=== PATIENT | male | born 1935 | race Caucasian/White ===

== ENCOUNTER 2016-11-30 10:56 | Emergency (ER) | payer MEDICARE ==
[~2016-11-30] VITALS: Ht 185.4 cm; Wt 95.7 kg
[~2016-11-30 10:56] MED LIST: FINA5TAB4 PO; MELO-150 PO; METF500T4 PO; OXYC-323 PO; OXYC1TAB7 PO; PRIM50TA PO; PROP80CA3 PO; TAMS0.4C2 PO
[2016-11-30 11:52] LABS: BASO # 0.1 x10^3/uL (0.0-0.2); BASO % 1 % (0-3); EOS % 2 % (0-3); HEMATOCRIT 32.9 % (39.0-53.0); HEMOGLOBIN 10.9 g/dL (13.0-17.5); LYMPH # 1.4 x10^3/uL (1.0-4.8); LYMPH % 21 % (24-48); MEAN CORPUSCULAR HEMOGLOBIN 35 pg (25-35); MEAN CORPUSCULAR HGB CONC 33 g/dL (31-37); MEAN CORPUSCULAR VOLUME 105 fL (79-100); MONO % 11 % (0-9); NEUT % 66 % (31-73); PLATELET COUNT 149 x10^3/uL (140-400); RED BLOOD COUNT 3.13 x10^6/uL (4.30-5.70); RED CELL DISTRIBUTION WIDTH 27.6 % (11.5-14.5); WHITE BLOOD COUNT 6.9 x10^3/uL (4.0-11.0)
[2016-11-30 11:56] LABS: CALCIUM 8.5 mg/dL (8.5-10.1); CREATININE 1.2 mg/dL (0.7-1.3); GFR 58.3; POTASSIUM 4.3 mmol/L (3.5-5.1)
[2016-11-30 12:01] LABS: ALBUMIN 3.3 g/dL (3.4-5.0); DIRECT BILIRUBIN 0.2 mg/dL (0.0-0.2); TOTAL BILIRUBIN 2.5 mg/dL (0.2-1.0); TOTAL PROTEIN 5.8 g/dL (6.4-8.2)
[2016-11-30 12:08] LABS: INR 1.6 (0.8-1.1); PROTHROMBIN TIME PATIENT 17.9 SEC (11.7-14.0)
[2016-11-30 12:09] LABS: CKMB INDEX 0.8 % (0-4); CKMB MASS 0.7 ng/mL (0.0-3.6)
--- NOTE | 2016-11-30 12:17 | PHYS DOC ---
Past Medical History Past Medical History: Anemia, Arthritis, Bronchitis, Cancer, COPD, Other Additional Past Medical Histor: CATARACT, MACULAR DEGEN, TREMORS, SLEEP APNEA, GERD, CHRONIC BACK PAIN Past Surgical History: Cholecystectomy, Tonsillectomy, Other Additional Past Surgical Histo: L SHOULDER SX, Alcohol Use: Occasionally Drug Use: None Adult General Chief Complaint Chief Complaint: RECTAL BLEED [facility] HPI Patient is a 81 year old male who presents with bleeding. He states when one about 10 days states this started after hard bowel movement. States he only notices blood when he has a bowel movement and a burn somewhat. He states the blood is bright red. States a couple times he had what looks like a large quantity of blood in the toilet. He denies any fevers chills nausea vomiting. He states this morning he feels a little lightheaded but denies any shortness of breath or chest pain. Has a history of colon cancer and had it resected in July and is on his fourth round of oral chemotherapy. Review of Systems Review of Systems Constitutional: Denies fever or chills [] Eyes: Denies change in visual acuity, redness, or eye pain [] HENT: Denies nasal congestion or sore throat [] Respiratory: Denies cough or shortness of breath [] Cardiovascular: No additional information not addressed in HPI [] GI: Denies abdominal pain, nausea, vomiting or diarrhea , positive for blood in his stools [] : Denies dysuria or hematuria [] Musculoskeletal: Denies back pain or joint pain [] Integument: Denies rash or skin lesions [] Neurologic: Denies headache, focal weakness or sensory changes [] Endocrine: Denies polyuria or polydipsia [] Allergies Allergies Allergies Coded Allergies Type Severity Reaction Last Updated Verified hydrocodone Adverse Reaction Intermediate hallucination 07/27/16 Yes Physical Exam Physical Exam Constitutional: Well developed, well nourished, no acute distress, non-toxic appearance. [] HENT: Normocephalic, atraumatic, bilateral external ears normal, oropharynx moist, no oral exudates, nose normal. [] Eyes: PERRLA, EOMI, conjunctiva normal, no discharge. [] Neck: Normal range of motion, no tenderness, supple, no stridor. [] Cardiovascular:Heart rate regular rhythm, no murmur [] Lungs & Thorax: Bilateral breath sounds clear to auscultation [] Abdomen/: Bowel sounds normal, soft, no tenderness, no masses, no pulsatile masses healed incision midline. Rectal exam shows normal tone, stool in the vault without any active bleeding noted [] Skin: Warm, dry, no erythema, no rash. [] Back: No tenderness, no CVA tenderness. [] Extremities: No tenderness, no cyanosis, no clubbing, ROM intact, no edema. [] Neurologic: Alert and oriented X 3, normal motor function, normal sensory function, no focal deficits noted. [] Psychologic: Affect normal, judgement normal, mood normal. [] Current Patient Data Vital Signs Vital Signs Date Time Temp Pulse Resp B/P Pulse Ox O2 Delivery O2 Flow Rate FiO2 11/30/16 13:15 58 21 133/67 91 Room Air 11/30/16 11:05 97.4 97.4 Lab Values Laboratory Tests Test 11/30/16 11:15 11/30/16 13:30 White Blood Count 6.9x10^3/uL (4.0-11.0) Red Blood Count 3.13x10^6/uL (4.30-5.70) L Hemoglobin 10.9g/dL (13.0-17.5) L Hematocrit 32.9% (39.0-53.0) L Mean Corpuscular Volume 105fL (79-100) H Mean Corpuscular Hemoglobin 35pg (25-35) Mean Corpuscular Hemoglobin Concent 33g/dL (31-37) Red Cell Distribution Width 27.6% (11.5-14.5) H Platelet Count 149x10^3/uL (140-400) Neutrophils (%) (Auto) 66% (31-73) Lymphocytes (%) (Auto) 21% (24-48) L Monocytes (%) (Auto) 11% (0-9) H Eosinophils (%) (Auto) 2% (0-3) Basophils (%) (Auto) 1% (0-3) Neutrophils # (Auto) 4.5x10^3uL (1.8-7.7) Lymphocytes # (Auto) 1.4x10^3/uL (1.0-4.8) Monocytes # (Auto) 0.7x10^3/uL (0.0-1.1) Eosinophils # (Auto) 0.2x10^3/uL (0.0-0.7) Basophils # (Auto) 0.1x10^3/uL (0.0-0.2) Platelet Estimate Adequate (ADEQUATE) Anisocytosis Marked Prothrombin Time 17.9SEC (11.7-14.0) H Prothrombin Time INR 1.6 (0.8-1.1) H Sodium Level 141mmol/L (136-145) Potassium Level 4.3mmol/L (3.5-5.1) Chloride Level 106mmol/L (98-107) Carbon Dioxide Level 28mmol/L (21-32) Anion Gap 7 (6-14) Blood Urea Nitrogen 22mg/dL (8-26) Creatinine 1.2mg/dL (0.7-1.3) Estimated GFR (Cockcroft-Gault) 58.3 Glucose Level 134mg/dL (70-99) H Calcium Level 8.5mg/dL (8.5-10.1) Total Bilirubin 2.5mg/dL (0.2-1.0) H Direct Bilirubin 0.2mg/dL (0.0-0.2) Aspartate Amino Transferase (AST) 24U/L (15-37) Alanine Aminotransferase (ALT) 20U/L (16-63) Alkaline Phosphatase 57U/L (46-116) Creatine Kinase 85U/L (39-308) Creatine Kinase MB (Mass) 0.7ng/mL (0.0-3.6) Creatine Kinase MB Relative Index 0.8% (0-4) Troponin I Quantitative < 0.017ng/mL (0.000-0.055) UE-Adf-G-Type Natriuretic Peptide 128pg/mL (0-449) Total Protein 5.8g/dL (6.4-8.2) L Albumin 3.3g/dL (3.4-5.0) L Stool Occult Blood Positive (NEG) Laboratory Tests 11/30/16 11:15 Laboratory Tests 11/30/16 11:15 EKG EKG [] Radiology/Procedures Radiology/Procedures [] Impressions: Rectal bleeding Course & Med Decision Making Course & Med Decision Making Pertinent Labs and Imaging studies reviewed. (See chart for details) Patient's hemoglobin is 10.5 his vitals are normal. He is not lightheaded or dizzy. Rectal exam did not show any active bleeding. The patient's agreeable follow-up with Dr. Patel. Return percussions given him and his agreeable plan being discharge in stable condition this time. Dragon Disclaimer Dragon Disclaimer This electronic medical record was generated, in whole or in part, using a voice recognition dictation system. Departure Departure Impression: Primary Impression: Rectal bleeding Disposition: ADMITTED INPATIENT Condition: STABLE Referrals: ROSE BARRY MD (PCP) SARA BARBER MD Patient Instructions: Rectal Bleeding Additional Instructions: You're hemoglobin is stable and you not complaining of being lightheaded or dizzy. I do not see any signs of bleeding on my exam. Please call Dr. Patel's office and schedule follow-up appointment. Return the ER. Have any chest discomfort lightheadedness dizziness or other concerns. KATIA ROSE MD Nov 30, 2016 12:17
[2016-11-30 13:15] LABS: ANISOCYTOSIS MARKED; PLT ESTIMATE ADEQUATE (ADEQUATE)
--- NOTE | 2016-11-30 13:48 | EKG ---
[facility] [address] [place] [address] Test Date: 2016-11-30 Test Time: 11:49:01 Pat Name: RIANA ARCHIBALD Department: Room: Gender: M Manager Qa: : 1935 Requested By: KATIA ROSE Order Number: [id number] Reading MD: Measurements Intervals [place] Rate: 60 P: 52 AK: 220 QRS: 26 QRSD: 76 T: 52 QT: 386 QTc: 386 Interpretive Statements SINUS RHYTHM PROLONGED AK INTERVAL RI6.01 Unconfirmed report No previous ECG available for comparison
[2016-11-30 14:03] LABS: NEG OBC FOB NEG; POS OBC FOB POS
[2016-11-30 14:10] VITALS: BP 121/65
== END 2016-11-30 14:55 | disposition home or self-care (01) ==
LOC: ER 10:56
DX: K62.5 Hemorrhage of anus and rectum (principal); M19.90 Unspecified osteoarthritis, unspecified site; J44.9 Chronic obstructive pulmonary disease, unspecified; G47.30 Sleep apnea, unspecified; G89.29 Other chronic pain; Z90.49 Acquired absence of other specified parts of digestive tract; Z88.5 Allergy status to narcotic agent
CPT/HCPCS: 36415; 80048; 80076; 82274; 82553; 83880; 84484; 85007; 85027; 85610; 93005; 99285-25

== ENCOUNTER → 2017-11-09 | Outpatient (CLI) | payer MEDICARE | END | disposition home or self-care (01) | LOC: PETSC 09:06 | DX: C18.2 Malignant neoplasm of ascending colon (principal) | CPT/HCPCS: 78815; A9552 ==

== ENCOUNTER 2017-11-16 07:24 | Day surgery (SDC) | payer MEDICARE ==
[~2017-11-16 07:24] MED LIST changes: -FINA5TAB4 PO; +LIDOCAINE 1% PF 2 ML VIAL. ID; -MELO-150 PO; -METF500T4 PO; +ONDANSETRON PF 4 MG/2 ML VIAL. IV; -OXYC-323 PO; -OXYC1TAB7 PO; -PRIM50TA PO; +PROCHLORPERAZINE 10 MG/2 ML VIAL. IV; -PROP80CA3 PO; -TAMS0.4C2 PO; +fentaNYL PF VIAL 100 MCG/2 ML VIAL IV
[2017-11-16] MEDS ORDERED: LIDOCAINE 1% PF 30 ML VIAL. (08:08)
[2017-11-16] MEDS: IV RINGERS,LACTATED 1000ML 1,000 ML IV (08:30)
[2017-11-16] MEDS ORDERED: PROPOFOL 20 ML IV (08:30)
[2017-11-16] MEDS ORDERED: LIDOCAINE 2% PF Vial for OR 5 ML VIAL. (08:30)
[2017-11-16] MEDS ORDERED: DEXAMETHASONE SOD PHOS 20 MG/5 ML VIAL. (08:30)
[2017-11-16] MEDS ORDERED: ONDANSETRON PF 4 MG/2 ML VIAL. (08:31)
[2017-11-16] MEDS ORDERED: ePHEDrine PF IN SALINE 50 MG/5 ML DISP.SYRIN IV (09:33)
[2017-11-16] MEDS: HEPARIN SODIUM 5,000 UNIT in IV NORMAL SALINE 500ML BAG 500 ML IRR (09:37)
== END 2017-11-16 11:28 | disposition home or self-care (01) ==
LOC: SURG 07:24
DX: Z45.2 Encounter for adjustment and management of vascular access device (principal); C18.9 Malignant neoplasm of colon, unspecified; I10 Essential (primary) hypertension; J44.9 Chronic obstructive pulmonary disease, unspecified; M19.90 Unspecified osteoarthritis, unspecified site; F17.200 Nicotine dependence, unspecified, uncomplicated; D64.9 Anemia, unspecified; Z96.612 Presence of left artificial shoulder joint; Z98.41 Cataract extraction status, right eye; Z98.42 Cataract extraction status, left eye; Z86.39 Personal history of other endocrine, nutritional and metabolic disease; Z90.49 Acquired absence of other specified parts of digestive tract; Z87.442 Personal history of urinary calculi; Z87.39 Personal history of other diseases of the musculoskeletal system and connective tissue; Z72.89 Other problems related to lifestyle
CPT/HCPCS: 36556; 36561; 71045; C1788; J0690; J1100; J1644; J2405; J2704; J7040; J7120

== ENCOUNTER → 2018-04-05 | Outpatient (CLI) | payer MEDICARE | END | disposition home or self-care (01) | LOC: PETSC 08:21 | DX: C18.2 Malignant neoplasm of ascending colon (principal); J43.8 Other emphysema; K76.0 Fatty (change of) liver, not elsewhere classified; I10 Essential (primary) hypertension; K21.9 Gastro-esophageal reflux disease without esophagitis | CPT/HCPCS: 78815; A9552 ==

== ENCOUNTER → 2018-07-12 | Outpatient (CLI) | payer MEDICARE ==
[2018-01-17 11:00] VITALS: BP 159/84
[~2018-07-12] MED LIST changes: +CYAN10005 PO; +FERR325T14 PO; +FINA5TAB4 PO; -LIDOCAINE 1% PF 2 ML VIAL. ID; +MELO15TA23 PO; +METF500T16 PO; +ONDA4TAB7 PO; -ONDANSETRON PF 4 MG/2 ML VIAL. IV; +OXYC-323 PO; +OXYC1TAB7 PO; +PRIM50TA PO; +PRIM50TA24 PO; -PROCHLORPERAZINE 10 MG/2 ML VIAL. IV; +PROP80CA3 PO; +TAMS0.4C2 PO; +TAMS0.4C97 PO; +VENTOLIN HFA18 GM INH; +VIT1TABL32 PO; +VITA1TAB3 PO; -fentaNYL PF VIAL 100 MCG/2 ML VIAL IV
--- NOTE | 2018-07-12 10:33 | RAD ---
FDG tumor localization scan, PET/CT, 07/12/2018: History: Restaging colon cancer Following IV and injection of 13.9 mCi of 18 F-FDG, imaging was performed from the skull base to the proximal thighs. The noncontrast CT component was performed for attenuation correction and anatomic localization purposes rather than for primary diagnosis. The patient's blood glucose level at the time of injection was 113 MG/DL. Comparison is made to a study from 04/05/2018. Physiologic activity is evident in the neck. No hypermetabolic neck abnormality is seen. The CT component demonstrates severe emphysematous changes in the lungs with scattered parenchymal scars. No hypermetabolic pulmonary focus is identified. The mediastinal activity is unremarkable. The hypermetabolic mass seen centrally in the abdomen on the previous study has increased in size now measuring 3 cm in width, compared to a width of approximately 2 cm on the previous study. It demonstrates a maximum SUV is 16.1 compared to value of 12.0 on the previous study. This mass is inseparable from the superior mesenteric artery and vein. Normal GI tract and urinary tract activity is present in the abdomen and pelvis. No additional hypermetabolic mass or adenopathy is seen. The hepatic activity is heterogeneous as is often the case. No discrete hypermetabolic hepatic abnormality is seen. A tiny low-density lesion in the anterior aspect of the left lobe of the liver is too small to characterize but appears unchanged since the CT images from 04/05/2018. Increased activity in the left gluteal musculature is most likely due to an injection site. Incidental CT findings include the presence of a right Port-A-Cath extending into the superior vena cava. Scattered coronary artery calcifications are present. There is bilateral renal cortical scarring and mild perinephric edema. Mild aneurysmal dilatation of the infrarenal abdominal aorta is again noted. There is mild nonspecific prostatic enlargement with mild associated diffuse bladder wall thickening. Degenerative and postsurgical changes are present in the lumbar spine. IMPRESSION: 1. The patient's hypermetabolic mesenteric mass has increased in size and the degree of FDG uptake since 04/05/2018, compatible with worsening metastatic disease. 2. No new FDG-PET abnormality is detected.
== END | disposition home or self-care (01) ==
LOC: PETSC 07:28
PROVIDERS: ATTEND Internal Medicine Hematology & Oncology
DX: C18.2 Malignant neoplasm of ascending colon (principal); I10 Essential (primary) hypertension; J44.9 Chronic obstructive pulmonary disease, unspecified; G47.30 Sleep apnea, unspecified; K21.9 Gastro-esophageal reflux disease without esophagitis; M19.90 Unspecified osteoarthritis, unspecified site; F17.200 Nicotine dependence, unspecified, uncomplicated; Z98.42 Cataract extraction status, left eye; Z98.41 Cataract extraction status, right eye; Z85.038 Personal history of other malignant neoplasm of large intestine; Z90.49 Acquired absence of other specified parts of digestive tract; Z96.612 Presence of left artificial shoulder joint; Z72.89 Other problems related to lifestyle; Z79.899 Other long term (current) drug therapy
CPT/HCPCS: 78815; A9552

== ENCOUNTER → 2018-08-14 | Outpatient (CLI) | payer MEDICARE ==
[2018-01-17 11:00] VITALS: BP 159/84
[~2018-08-14] MED LIST changes: +CONTRAST GIVEN. MC PRN; +HEPARIN PF 500 UNIT/5 ML DISP.SYRIN. IV ONE; +IOHEXOL 240 MG/ML 50ML VIAL. IV ONE; +IOHEXOL 240 MG/ML 50ML VIAL. ONE
--- NOTE | 2018-08-14 16:11 | RAD ---
Fluoroscopic evaluation, right internal jugular port 08/14/2018 Indication: Port-A-Cath will not aspirate Discussion: The risks and benefits of the procedure were discussed the patient. Informed consent was obtained. Timeout procedure was performed. The port was previously accessed. Fluoroscopic evaluation demonstrates the catheter tip to be somewhat proximal in position. Contrast was administered to the catheter demonstrating severe tapering of what appears to be the right brachiocephalic vein, resulting in high-grade stenosis at the level of the catheter tip. Several enlarged collateral veins noted. The port catheter remains intact. No extravasation of contrast was seen. 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
== END | disposition home or self-care (01) ==
LOC: INTRAD 13:28
PROVIDERS: ATTEND Internal Medicine Hematology & Oncology
DX: T82.858A Stenosis of other vascular prosthetic devices, implants and grafts, initial encounter (principal); Z88.5 Allergy status to narcotic agent; Y83.8 Other surgical procedures as the cause of abnormal reaction of the patient, or of later complication, without mention of misadventure at the time of the procedure
CPT/HCPCS: 36598; Q9966

== ENCOUNTER 2018-08-20 08:15 | Day surgery (SDC) | payer MEDICARE ==
[~2018-08-20] VITALS: Ht 185.4 cm; Wt 93.9 kg
[~2018-08-20 08:15] MED LIST changes: -CONTRAST GIVEN. MC PRN; -HEPARIN PF 500 UNIT/5 ML DISP.SYRIN. IV ONE; +HEPARIN SODIUM 5,000 UNIT in IV NORMAL SALINE 500ML BAG 500 ML IRR ONE; -IOHEXOL 240 MG/ML 50ML VIAL. IV ONE; -IOHEXOL 240 MG/ML 50ML VIAL. ONE; +IV RINGERS,LACTATED 1000ML 1,000 ML IV SCH; +LIDOCAINE 1% PF 2 ML VIAL. ID PRN; +ONDANSETRON PF 4 MG/2 ML VIAL. IV PRN; +PROCHLORPERAZINE 10 MG/2 ML VIAL. IV PRN; +fentaNYL PF VIAL 100 MCG/2 ML VIAL IV PRN
[2018-08-20] MEDS ORDERED: BUPIVAC MPF-EPI 0.5%-1:200000 30 ML VIAL. ONE (10:06)
[2018-08-20] MEDS ORDERED: fentaNYL PF VIAL 100 MCG/2 ML VIAL ONE ×2 (10:11→11:47)
[2018-08-20] MEDS ORDERED: PROPOFOL 20 ML IV ONE (10:12)
[2018-08-20] MEDS ORDERED: DEXAMETHASONE SOD PHOS 20 MG/5 ML VIAL. ONE (10:12)
[2018-08-20] MEDS ORDERED: FAMOTIDINE 20 MG/2 ML VIAL ONE (10:12)
[2018-08-20] MEDS ORDERED: ONDANSETRON PF 4 MG/2 ML VIAL. ONE (10:12)
[2018-08-20] MEDS ORDERED: LIDOCAINE 1% PF 5 ML VIAL. ONE (10:12)
[2018-08-20] MEDS ORDERED: ePHEDrine PF IN SALINE 50 MG/5 ML DISP.SYRIN IV ONE (10:46)
[2018-08-20] MEDS ORDERED: SEVOFLURANE 61 TO 120 MINUTES. IH ONE (11:17)
--- NOTE | 2018-08-20 11:44 | PDOC4 ---
Operative Note Operative Note Operative Note: Preoperative Diagnosis: Colon cancer, poorly functioning Port-A-Cath Postoperative Diagnosis: Same Procedure: Placement of Power Port-A-Cath using SonoSite guidance, removal of prior Port-A-Cath Surgeon: Nestor Anesthesia: Gen. EBL: 10 mL Specimen: None Drains: None Complications: None Indication: The patient is a 83 year old male who has been receiving chemotherapy for colon cancer. He had a prior Port-A-Cath however recently the function has been poor. A request was made for placement of a new Port-A-Cath. The details and risks of the procedure were discussed. The risks include bleeding, infection, vessel injury, pneumothorax, pain, anesthetic risk, port, catheter or tubing malfunction or dysfunction, potential need for additional surgery or procedure. The patient understands and would like to proceed. Description: The patient was placed supine on the operating table and general anesthesia was performed. The bilateral neck and chest were prepped with ChloraPrep and draped in a standard surgical manner. With SonoSite ultrasound guidance the left internal jugular vein was readily identified and appeared patent. Entry was made into the vein with the skinny introducer needle under ultrasound guidance. The skinny guidewire passed readily into the central venous system. A small incision was made at the skin exit site. The skinny sheath was then placed over the guidewire. The larger guidewire was then placed within the sheath into the central venous system. Intraoperative fluoroscopy confirmed good position of the guidewire in the central venous system. The dilator and sheath were then placed over the guidewire. The catheter portion was then inserted into the central venous system and visualized using fluoroscopy. A separate left upper chest skin incision was made with a scalpel. A subcutaneous pocket was developed with cautery of sufficient size to accommodate the port. The catheter was then tunneled subcutaneously to the level of the newly formed pocket. Using fluoroscopy the catheter was positioned with the tip in the distal superior vena cava. The catheter was then cut and assembled to the port. The port was then secured to the chest wall with two 2-0 Prolene sutures. Using the Sorenson needle the port readily aspirated and flushed without difficulty. Fluoroscopy confirmed good positioning of the catheter with no twists or kinks. The subcutaneous tissue was approximated with 3-0 Vicryl. The skin was then closed with 4-0 Monocryl. A separate incision was made in the right chest at the prior scar used for Port-A-Cath placement. Cautery dissection was carried through the subcutaneous tissue. The attaching Prolene sutures were cut and the port was readily retrieved. Some residual scar tissue was divided and the entire port and catheter were removed. The tract was oversewn with a 2-0 Vicryl suture. Hemostasis was achieved with cautery. The skin was approximated with 4-0 Monocryl. Sterile dressings were then applied. The patient tolerated the procedure well and was sent to the recovery room in stable condition. At the end of the case all counts were correct. SARA SUE MD Aug 20, 2018 11:43
--- NOTE | 2018-08-20 11:45 | DISCH ---
DISCHARGE INSTRUCTIONS Condition on Discharge Condition on Discharge: Stable Activity After Discharge Activity Instructions for Disc: Resume previous activity Diet after Discharge Diet after Discharge: Regular Wound Incision Care Wound/Incision Care: Other, see below (keep port dressing clean and dry) Contacting the after DC Call your doctor for: Concerns you may have Follow-Up Follow up with: Dr Sue in 2 weeks in office, call for appt [phone] SARA SUE MD Aug 20, 2018 11:45
[2018-08-20 12:20] VITALS: BP 142/72
--- NOTE | 2018-08-20 16:28 | RAD ---
Single view of the chest. 08/20/2018 11:36 AM Indication: post port a cath insertion Comparison: Chest radiograph November 16, 2017 Findings: There has been removal of the right-sided port and placement of a left internal jugular port with tip at the cavoatrial junction. No pneumothorax or effusion is identified. Severe emphysematous changes multifocal scarring similar to comparison study. An acute osseous change from prior study is not seen. IMPRESSION: New left internal jugular port with tip well-positioned at the cavoatrial junction Electronically signed by: John Ordonez MD (08/20/2018 4:25 PM) [id number]
== END 2018-08-20 12:39 | disposition home or self-care (01) ==
LOC: SURG 08:15
PROVIDERS: ATTEND Surgery
DX: T82.598A Other mechanical complication of other cardiac and vascular devices and implants, initial encounter (principal); C18.9 Malignant neoplasm of colon, unspecified; J44.9 Chronic obstructive pulmonary disease, unspecified; M19.90 Unspecified osteoarthritis, unspecified site; Z79.899 Other long term (current) drug therapy; Z79.2 Long term (current) use of antibiotics; Z96.611 Presence of right artificial shoulder joint; Z90.49 Acquired absence of other specified parts of digestive tract; Z98.890 Other specified postprocedural states; Z82.49 Family history of ischemic heart disease and other diseases of the circulatory system; Z86.69 Personal history of other diseases of the nervous system and sense organs; Z87.891 Personal history of nicotine dependence; Z88.6 Allergy status to analgesic agent; Y83.8 Other surgical procedures as the cause of abnormal reaction of the patient, or of later complication, without mention of misadventure at the time of the procedure; Y92.89 Other specified places as the place of occurrence of the external cause
CPT/HCPCS: 36561; 36590; 71045; 77001; A7015; C1788; J0690; J1100; J1644; J2405; J2704; J3010; J3490; J7040; J7120; 36556

== ENCOUNTER → 2018-10-25 | Outpatient (CLI) | payer MEDICARE ==
[~2018-10-25] MED LIST changes: -HEPARIN SODIUM 5,000 UNIT in IV NORMAL SALINE 500ML BAG 500 ML IRR ONE; -IV RINGERS,LACTATED 1000ML 1,000 ML IV SCH; -LIDOCAINE 1% PF 2 ML VIAL. ID PRN; -ONDANSETRON PF 4 MG/2 ML VIAL. IV PRN; -OXYC-323 PO; +OXYC1TAB15 PO; -PROCHLORPERAZINE 10 MG/2 ML VIAL. IV PRN; -fentaNYL PF VIAL 100 MCG/2 ML VIAL IV PRN
--- NOTE | 2018-10-25 12:21 | RAD ---
FDG tumor localization scan, PET/CT, 10/25/2018: History: Rectal cancer restaging Following IV injection of 13.3 mCi of 18 F-FDG, imaging was performed from the skull base to the proximal thighs. The noncontrast CT component was performed for attenuation correction and anatomic localization purposes rather for primary diagnosis. The patient's blood glucose level to time of injection was 105 MG/DL. Comparison is made to a study from 07/12/2018. There is a persistent hypermetabolic mass in the central abdomen that cannot be from the superior mesenteric artery and vein or the adjacent third portion of the duodenum. It is therefore difficult to measure on the CT component. Its width is estimated at 3.5 cm similar to that seen on the previous study. The PET component suggests that it is of similar to perhaps slightly smaller size. Its maximum SUV is currently 8.3 compared to value of 16 on the previous study. There is an irregular gas collection related to this mass suggesting cavitation. Alternatively this gas could originate in the adjacent duodenum. Normal GI tract and urinary tract activity is present in the abdomen and pelvis. There is similar increased activity related to the rectum which may be physiologic. Correlation with the site of the patient's original malignancy is suggested. No perirectal hypermetabolic mass is seen. A small low density lesion is again noted anteriorly in the liver. It does not demonstrate increased metabolic activity. This may be a cyst. There is a new 2 cm irregular nodule in the left lung base laterally. It is hypermetabolic with a maximum SUV of 7.9. The CT component demonstrates extensive emphysematous change in the lungs with scattered pleural/parenchymal scars. No additional hypermetabolic intrathoracic lesion is seen. No mediastinal adenopathy is evident. A left Port-A-Cath extends into the superior vena cava. There is mildly increased FDG uptake related to this skin over the anterior aspect of the right mid to upper chest with a small focus of skin thickening. This apparently represents residual inflammation at the old Port-A-Cath site. Physiologic activity is evident in the neck. No hypermetabolic neck lesion is seen. IMPRESSION: 1. The hypermetabolic mesenteric mass in the central abdomen is similar to slightly decreased in size since 07/12/2018, with probable internal cavitation. The level of FDG uptake has decreased since the prior exam. 2. New irregular hypermetabolic nodule in the left lung base laterally raising the possibility of a primary or secondary malignancy. 3. Increased FDG uptake related to the right anterior chest wall at a previous Port-A-Cath site is compatible with residual inflammation. .
== END | disposition home or self-care (01) ==
LOC: PETSC 09:41
PROVIDERS: ATTEND Internal Medicine Hematology & Oncology
DX: C20 Malignant neoplasm of rectum (principal); R91.1 Solitary pulmonary nodule; Z85.038 Personal history of other malignant neoplasm of large intestine
CPT/HCPCS: 78815; A9552

== ENCOUNTER 2018-12-24 14:26 | Emergency (ER) | payer MEDICARE ==
[~2018-12-24] VITALS: Ht 185.4 cm; Wt 85.3 kg
[2018-12-24 14:59] LABS: BASO % 0 % (0-3); EOS % 1 % (0-3); HEMATOCRIT 39.4 % (39.0-53.0); HEMOGLOBIN 13.2 g/dL (13.0-17.5); LYMPH # 0.7 x10^3/uL (1.0-4.8); LYMPH % 12 % (24-48); MEAN CORPUSCULAR HEMOGLOBIN 35 pg (25-35); MEAN CORPUSCULAR HGB CONC 34 g/dL (31-37); MEAN CORPUSCULAR VOLUME 104 fL (79-100); MONO # 1.3 x10^3/uL (0.0-1.1); MONO % 23 % (0-9); NEUT # 3.7 x10^3uL (1.8-7.7); NEUT % 64 % (31-73); PLATELET COUNT 180 x10^3/uL (140-400); RED CELL DISTRIBUTION WIDTH 13.4 % (11.5-14.5); WHITE BLOOD COUNT 5.8 x10^3/uL (4.0-11.0)
[2018-12-24] MEDS ORDERED: IV NORMAL SALINE 1000ML BAG 1,000 ML IV ONE (15:00)
[2018-12-24 15:11] LABS: CALCIUM 8.5 mg/dL (8.5-10.1); CREATININE 2.3 mg/dL (0.7-1.3); GFR 27.4; POTASSIUM 4.3 mmol/L (3.5-5.1)
[2018-12-24 15:16] LABS: ALBUMIN 2.7 g/dL (3.4-5.0); ALBUMIN/GLOBULIN RATIO 0.6 (1.0-1.7); TOTAL BILIRUBIN 1.9 mg/dL (0.2-1.0); TOTAL PROTEIN 6.9 g/dL (6.4-8.2)
[2018-12-24 15:44] LABS: % BANDS 37 % (0-9); % EOS 2 % (0-5); % LYMPHS 10 % (24-48); % METAS 2 % (0-0); % MONOS 20 % (0-10); % SEGS 29 % (35-66)
[2018-12-24 15:47] LABS: PLT ESTIMATE ADEQUATE (ADEQUATE)
--- NOTE | 2018-12-24 15:58 | PHYS DOC ---
Past Medical History Past Medical History: Anemia, Arthritis, Bronchitis, Cancer, COPD, Hypertension , Other Additional Past Medical Histor: CATARACT, MACULAR DEGEN, TREMORS, SLEEP APNEA, GERD,BACK PAIN, COLON CA Past Surgical History: Cholecystectomy, Tonsillectomy, Other Additional Past Surgical Histo: L SHOULDER SX,back surg x 3 Alcohol Use: Occasionally Drug Use: None Adult General Chief Complaint Chief Complaint: HYPOTENSION HPI HPI 83-year-old male with history of metastatic colon cancer was receiving treatment and Dr. Ram's office today when they noted he was hypotensive. Patient was asymptomatic. He has no pain. He's not had any fever chills or sweats. He denies any chest pain or shortness of breath. When EMS arrived they noted that his blood pressure was 110 systolic. Patient does state that he gets a little dizzy when he stands up. He has not passed out though.[] Review of Systems Review of Systems Constitutional: Denies fever or chills [] Eyes: Denies change in visual acuity, redness, or eye pain [] HENT: Denies nasal congestion or sore throat [] Respiratory: Denies cough or shortness of breath [] Cardiovascular: No additional information not addressed in HPI [] GI: Denies abdominal pain, nausea, vomiting, bloody stools or diarrhea [] : Denies dysuria or hematuria [] Musculoskeletal: Denies back pain or joint pain [] Integument: Denies rash or skin lesions [] Neurologic: Denies headache, focal weakness or sensory changes [] Endocrine: Denies polyuria or polydipsia [] All other systems were reviewed and found to be within normal limits, except as documented in this note. Current Medications Current Medications Current Medications Medications (Trade) Dose Ordered Sig/Jozef Start Time Stop Time Status Last Admin Dose Admin Sodium Chloride 1,000 ml @ 1,000 mls/hr 1X ONCE 12/24/18 15:00 12/24/18 15:59 DC 12/24/18 16:05 1,000 MLS/HR Allergies Allergies Allergies Coded Allergies Type Severity Reaction Last Updated Verified hydrocodone Adverse Reaction Intermediate hallucination 08/20/18 Yes Physical Exam Physical Exam Constitutional: Well developed, well nourished, no acute distress, non-toxic appearance. [] HENT: Normocephalic, atraumatic, bilateral external ears normal, oropharynx moist, no oral exudates, nose normal. [] Eyes: PERRLA, EOMI, conjunctiva normal, no discharge. [] Neck: Normal range of motion, no tenderness, supple, no stridor. [] Cardiovascular:Heart rate regular rhythm, no murmur [] Lungs & Thorax: Port left upper chest[] Abdomen: Bowel sounds normal, soft, no tenderness, no masses, no pulsatile masses. [] Skin: Warm, dry, no erythema, no rash. [] Back: No tenderness, no CVA tenderness. [] Extremities: No tenderness, no cyanosis, no clubbing, ROM intact, no edema. [] Neurologic: Alert and oriented X 3, normal motor function, normal sensory function, no focal deficits noted. [] Psychologic: Affect normal, judgement normal, mood normal. [] Current Patient Data Vital Signs Vital Signs Date Time Temp Pulse Resp B/P (MAP) Pulse Ox O2 Delivery O2 Flow Rate FiO2 12/24/18 15:16 95 21 100/69 (79) 93 Nasal Cannula 3.0 12/24/18 14:26 98.2 98.2 Lab Values Laboratory Tests Test 12/24/18 14:45 White Blood Count 5.8 x10^3/uL (4.0-11.0) Red Blood Count 3.80 x10^6/uL (4.30-5.70) L Hemoglobin 13.2 g/dL (13.0-17.5) Hematocrit 39.4 % (39.0-53.0) Mean Corpuscular Volume 104 fL (79-100) H Mean Corpuscular Hemoglobin 35 pg (25-35) Mean Corpuscular Hemoglobin Concent 34 g/dL (31-37) Red Cell Distribution Width 13.4 % (11.5-14.5) Platelet Count 180 x10^3/uL (140-400) Neutrophils (%) (Auto) 64 % (31-73) Lymphocytes (%) (Auto) 12 % (24-48) L Monocytes (%) (Auto) 23 % (0-9) H Eosinophils (%) (Auto) 1 % (0-3) Basophils (%) (Auto) 0 % (0-3) Neutrophils # (Auto) 3.7 x10^3uL (1.8-7.7) Lymphocytes # (Auto) 0.7 x10^3/uL (1.0-4.8) L Monocytes # (Auto) 1.3 x10^3/uL (0.0-1.1) H Eosinophils # (Auto) 0.0 x10^3/uL (0.0-0.7) Basophils # (Auto) 0.0 x10^3/uL (0.0-0.2) Segmented Neutrophils % 29 % (35-66) L Band Neutrophils % 37 % (0-9) H Lymphocytes % 10 % (24-48) L Monocytes % 20 % (0-10) H Eosinophils % 2 % (0-5) Metamyelocytes % 2 % (0-0) H Platelet Estimate Adequate (ADEQUATE) Sodium Level 134 mmol/L (136-145) L Potassium Level 4.3 mmol/L (3.5-5.1) Chloride Level 96 mmol/L (98-107) L Carbon Dioxide Level 23 mmol/L (21-32) Anion Gap 15 (6-14) H Blood Urea Nitrogen 35 mg/dL (8-26) H Creatinine 2.3 mg/dL (0.7-1.3) H Estimated GFR (Cockcroft-Gault) 27.4 BUN/Creatinine Ratio 15 (6-20) Glucose Level 121 mg/dL (70-99) H Calcium Level 8.5 mg/dL (8.5-10.1) Total Bilirubin 1.9 mg/dL (0.2-1.0) H Aspartate Amino Transferase (AST) 27 U/L (15-37) Alanine Aminotransferase (ALT) 47 U/L (16-63) Alkaline Phosphatase 101 U/L (46-116) Total Protein 6.9 g/dL (6.4-8.2) Albumin 2.7 g/dL (3.4-5.0) L Albumin/Globulin Ratio 0.6 (1.0-1.7) L Laboratory Tests 12/24/18 14:45 Laboratory Tests 12/24/18 14:45 EKG EKG [] Radiology/Procedures Radiology/Procedures [] Course & Med Decision Making Course & Med Decision Making Pertinent Labs and Imaging studies reviewed. (See chart for details) [ED course: Evaluation reveals an 83-year-old male with orthostatic hypotension. His blood pressure did drop to 80 systolic and he became tachycardic at 106 when seated. We gave him a liter of fluids which did correct this problem. His blood pressure going from lying to standing was 170s to 150s however the patient was asymptomatic with these changes I feel the patient is safe for discharge home at this time.] Dragon Disclaimer Dragon Disclaimer This electronic medical record was generated, in whole or in part, using a voice recognition dictation system. Departure Departure Impression: Primary Impression: Orthostatic hypotension Disposition: HOME, SELF-CARE Condition: IMPROVED Referrals: ROSE BARRY MD (PCP) Patient Instructions: Orthostatic Hypotension Additional Instructions: Return to the emergency department with any new or concerning symptoms ABRAM ESTRADA DO Dec 24, 2018 15:58
--- NOTE | 2018-12-24 16:15 | EKG ---
[facility] [address] [place] [address] Test Date: 2018-12-24 Test Time: 14:32:33 Pat Name: RIANA ARCHIBALD Department: Room: Gender: M Patrol Guard: : 1935 Requested By: ABRAM ESTRADA Order Number: [id number] Reading MD: David Lazar MD Measurements Intervals [place] Rate: 94 P: 23 CO: 202 QRS: 35 QRSD: 80 T: 64 QT: 330 QTc: 413 Interpretive Statements SINUS RHYTHM Electronically Signed On 12-25-2018 9:11:42 CDT by David Lazar MD
[2018-12-24 17:20] VITALS: BP 128/70
== END 2018-12-24 17:53 | disposition home or self-care (01) ==
LOC: ER 14:26
DX: I95.1 Orthostatic hypotension (principal); J44.9 Chronic obstructive pulmonary disease, unspecified; I10 Essential (primary) hypertension; K21.9 Gastro-esophageal reflux disease without esophagitis; Z85.038 Personal history of other malignant neoplasm of large intestine; Z88.5 Allergy status to narcotic agent
CPT/HCPCS: 36415; 80053; 85007; 85025; 93005; 96360; 99284; J7030